=== PATIENT | male | born 1960 | race Caucasian/White ===

== ENCOUNTER 2020-05-29 15:06 | Emergency (ER) | payer OTHER ==
[~2020-05-29] VITALS: Ht 193 cm; Wt 91.0 kg
[2020-05-29] MEDS ORDERED: ACETAMINOPHEN 325MG TABLET PO STA (15:15)
[2020-05-29] MEDS ORDERED: TETANUS, DIPHTHERIA, PERTUSSIS VAC/PF 0.5ML (>7YR OLD) IM ONE (16:30)
[2020-05-29] MEDS ORDERED: BACITRACIN ZINC OINT UDPKT TOP ONE (16:30)
[2020-05-29 17:51] VITALS: BP 147/98
== END 2020-05-29 17:53 ==
LOC: ER 15:06
DX: S01.111A Laceration without foreign body of right eyelid and periocular area, initial encounter (principal); W18.30XA Fall on same level, unspecified, initial encounter; Y93.89 Activity, other specified; Y92.89 Other specified places as the place of occurrence of the external cause; Y99.8 Other external cause status
CPT/HCPCS: 12013; 90471; 90715; 99284